=== PATIENT | female | born 1975 | race Hispanic/Latino ===

== ENCOUNTER 2020-09-06 00:41 | Emergency (ER) | payer SELFPAY ==
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
[2020-09-06 01:15] VITALS: BP 120/60
== END 2020-09-06 01:10 ==
LOC: ED 00:41
DX: Z00.8 Encounter for other general examination (principal); V49.3XXA Car occupant (driver) (passenger) injured in unspecified nontraffic accident, initial encounter; Y92.410 Unspecified street and highway as the place of occurrence of the external cause; Y93.89 Activity, other specified; Y99.8 Other external cause status
CPT/HCPCS: 99282